=== PATIENT | female | born 1970 | race Caucasian/White ===

== ENCOUNTER 2017-06-23 00:02 | Emergency (ER) | payer OTHER ==
[~2017-06-23] VITALS: Ht 165.1 cm; Wt 98.9 kg
[2017-06-23 00:08] VITALS: BP 139/80
[2017-06-23 01:35] LABS: HIV 1&2 ANTIBODY SCREEN Nonreactive (Nonreactive); HIV-1 p24 ANTIGEN Nonreactive (Nonreactive)
== END 2017-06-23 03:54 | disposition home or self-care (01) ==
LOC: ED 00:55
DX: S61.232A Puncture wound without foreign body of right middle finger without damage to nail, initial encounter (principal); X58.XXXA Exposure to other specified factors, initial encounter; Y93.89 Activity, other specified; Y92.89 Other specified places as the place of occurrence of the external cause; Y99.9 Unspecified external cause status
CPT/HCPCS: 36415; 86703; 86704; 86706; 86708; 86803; 87340; 87899; 99285; G0435